=== PATIENT | male | born 1955 | race Caucasian/White ===

== ENCOUNTER 2022-05-10 14:10 | Inpatient (IN) ==
[2022-05-10 16:14] LABS: Basophils % 0.5 % (0.0-0.8); Eosinophils # 0.1 10*3/uL (0.0-0.87); Eosinophils % 0.9 % (0.00-10.9); Hematocrit 37.2 VOL% (42.0-52.0); Hemoglobin 12.5 GM/DL (14.0-18.0); Immature Granulocytes % 0.4 %; Immature Granulocytes Absolute 0.03 #; Lymphocytes % 12.4 % (21.2-54.2); Mean Corpuscular HGB Conc 33.6 GM/DL (32-36); Mean Corpuscular Volume 84.2 FL (87-102); Mean Platelet Volume 10.7 FL (9.6-12.0); Neutrophils % 72.8 % (38.7-73.9); Platelet Count 231 T/CUMM (130-400); Red Blood Count 4.42 MC/CUMM (3.8-5.5); Red Cell Distribution Width 13.2 % (9.3-17.3); White Blood Count 7.9 T/CUMM (4-12)
[2022-05-10 16:34] LABS: Albumin 3.5 G/DL (3.4-5.0); Bilirubin,Total 0.5 MG/DL (0.20-1.00); Calcium 9.8 MG/DL (8.5-10.1); Osmolality,Calculated 267.1 MOS/KG (273-304); Potassium 4.4 MMOL/L (3.5-5.1); Total Protein 7.4 G/DL (6.4-8.2)
[2022-05-10] MEDS ORDERED: SODIUM CHLORIDE 0.9% 1,000 ML IV STA (16:49)
[2022-05-10 17:15] LABS: Bilirubin,Urine Negative (Negative); Blood, Urine Small mg/dL (Negative); Glucose,Urine (UA) Negative (Negative); Ketones,Urine Negative (Negative); Nitrite,Urine Negative (Negative); Protein,Urine Negative (Negative); RBC,Urine 1 /HPF (0-4); Urine Appearance CLEAR (Clear); Urine Color Yellow (Yellow); Urine Urobilinogen < 2.0 eU/dL (<2.0)
[2022-05-10] MEDS ORDERED: LORazepam 2 MG/1 ML VIAL ONE (18:28)
[2022-05-10] MEDS ORDERED: LORazepam 2 MG/1 ML VIAL IV STA (18:29)
[2022-05-10] MEDS ORDERED: hydrALAZINE 20 MG/1 ML VIAL IV PRN (21:20)
[2022-05-10] MEDS ORDERED: ONDANSETRON 4 MG/2 ML VIAL IV PRN (21:20)
[2022-05-10] MEDS ORDERED: NICOTINE 21 MG/24 HR PATCH TRANSDERM PRN (21:20)
[2022-05-10] MEDS ORDERED: LORazepam 2 MG/1 ML VIAL IV PRN (21:47)
[2022-05-10 22:15] LABS: % Iron Saturation 10.9 % (18-50); Ferritin 203.6 ng/mL (26-388); Folate 21.09 NG/ML (5.38-24.0)
[2022-05-10 22:21] LABS: Hepatitis B Core IgM Quant 0.15 Index; Hepatitis B Surface Ag Quant < 0.10 Index; Hepatitis B Surface Ag Result Non-Reactive (NonReactive); Hepatitis C Virus Ab Quant 0.03 Index; Hepatitis C Virus Ab Result Non-Reactive (NonReactive)
[2022-05-10] MEDS: SODIUM CHLORIDE 0.9% 1,000 ML IV SCH (22:30)
[2022-05-11 03:34] LABS: Basophils % 0.5 % (0.0-0.8); Eosinophils # 0.1 10*3/uL (0.0-0.87); Hematocrit 32.9 VOL% (42.0-52.0); Hemoglobin 10.9 GM/DL (14.0-18.0); Immature Granulocytes % 0.5 %; Immature Granulocytes Absolute 0.03 #; Lymphocytes # 0.8 10*3/uL (1.4-4.0); Lymphocytes % 14.8 % (21.2-54.2); Mean Corpuscular HGB Conc 33.1 GM/DL (32-36); Mean Corpuscular Volume 85.7 FL (87-102); Mean Platelet Volume 10.9 FL (9.6-12.0); Monocytes # 0.9 10*3/uL (0.11-0.8); Monocytes % 15.7 % (1.7-12.7); Neutrophils % 66.5 % (38.7-73.9); Platelet Count 188 T/CUMM (130-400); Red Blood Count 3.84 MC/CUMM (3.8-5.5); Red Cell Distribution Width 13.3 % (9.3-17.3); White Blood Count 5.6 T/CUMM (4-12)
[2022-05-11 03:57] LABS: Lymphocytes 24 % (20-55); Platelet Estimate Adequate; Total Cells Counted 100
[2022-05-11 04:00] LABS: Bilirubin,Total 0.5 MG/DL (0.20-1.00); Calcium 9.3 MG/DL (8.5-10.1); Osmolality,Calculated 273.4 MOS/KG (273-304); Potassium 4.3 MMOL/L (3.5-5.1); Thyroid Stimulating Hormone 0.991 uIU/ml (0.358-3.74); Total Protein 6.6 G/DL (6.4-8.2)
[2022-05-11] MEDS: MULTIVITAMIN (CENTRUM) TABLET PO SCH (08:57)
[2022-05-11] MEDS: ENOXAPARIN 40 MG/0.4 ML SYRINGE SUBCUT SCH (08:57)
[2022-05-11] MEDS: FOLIC ACID 1 MG TABLET PO SCH (08:57)
[2022-05-11] MEDS: ASPIRIN EC 325 MG TABLET PO SCH (08:57)
[2022-05-11] MEDS: PANTOPRAZOLE 40 MG TABLET PO SCH (08:57)
[2022-05-11] MEDS: THIAMINE 100 MG TABLET PO SCH ×2 (08:57→21:43)
[2022-05-11] MEDS: SODIUM CHLORIDE 0.9% 1,000 ML IV SCH (14:06)
[2022-05-11] MEDS: AMOXICILLIN 875 MG TABLET PO SCH (21:43)
[2022-05-12 05:33] LABS: Basophils % 0.4 % (0.0-0.8); Eosinophils # 0.1 10*3/uL (0.0-0.87); Eosinophils % 0.9 % (0.00-10.9); Hematocrit 29.7 VOL% (42.0-52.0); Hemoglobin 9.8 GM/DL (14.0-18.0); Immature Granulocytes % 0.7 %; Immature Granulocytes Absolute 0.06 #; Lymphocytes # 0.6 10*3/uL (1.4-4.0); Lymphocytes % 7.4 % (21.2-54.2); Mean Corpuscular Volume 86.3 FL (87-102); Mean Platelet Volume 11.3 FL (9.6-12.0); Monocytes # 0.9 10*3/uL (0.11-0.8); Monocytes % 11.4 % (1.7-12.7); Neutrophils % 79.2 % (38.7-73.9); Platelet Count 182 T/CUMM (130-400); Red Blood Count 3.44 MC/CUMM (3.8-5.5); Red Cell Distribution Width 13.5 % (9.3-17.3); White Blood Count 8.2 T/CUMM (4-12)
[2022-05-12 05:49] LABS: Calcium 9.2 MG/DL (8.5-10.1); Osmolality,Calculated 268.7 MOS/KG (273-304); Potassium 3.9 MMOL/L (3.5-5.1)
[2022-05-12] MEDS: ENOXAPARIN 40 MG/0.4 ML SYRINGE SUBCUT SCH (09:33)
[2022-05-12] MEDS: FOLIC ACID 1 MG TABLET PO SCH (09:33)
[2022-05-12] MEDS: ASPIRIN EC 325 MG TABLET PO SCH (09:33)
[2022-05-12] MEDS: AMOXICILLIN 875 MG TABLET PO SCH ×2 (09:33→20:12)
[2022-05-12] MEDS: THIAMINE 100 MG TABLET PO SCH ×2 (09:33→20:12)
[2022-05-12] MEDS: PANTOPRAZOLE 40 MG TABLET PO SCH (09:33)
[2022-05-12] MEDS: MULTIVITAMIN (CENTRUM) TABLET PO SCH (09:33)
[2022-05-12] MEDS ORDERED: COLCHICINE 0.6 MG CAPSULE PO ONE ×2 (11:00→12:00)
[2022-05-12] MEDS: DICLOFENAC 1% GEL 100 GM TUBE TOP PRN ×2 (16:21→20:15)
[2022-05-12] MEDS: GABAPENTIN 100 MG CAPSULE PO SCH (20:12)
[2022-05-13] MEDS: ACETAMINOPHEN 325 MG TABLET PO PRN ×3 (00:43→21:13)
[2022-05-13 03:53] LABS: Basophils % 0.2 % (0.0-0.8); Eosinophils # 0.1 10*3/uL (0.0-0.87); Eosinophils % 0.9 % (0.00-10.9); Hematocrit 28.1 VOL% (42.0-52.0); Hemoglobin 9.3 GM/DL (14.0-18.0); Immature Granulocytes % 0.5 %; Immature Granulocytes Absolute 0.04 #; Lymphocytes # 0.9 10*3/uL (1.4-4.0); Lymphocytes % 10.7 % (21.2-54.2); Mean Corpuscular HGB Conc 33.1 GM/DL (32-36); Mean Corpuscular Volume 85.2 FL (87-102); Mean Platelet Volume 10.6 FL (9.6-12.0); Monocytes # 1.2 10*3/uL (0.11-0.8); Monocytes % 13.5 % (1.7-12.7); Neutrophils % 74.2 % (38.7-73.9); Platelet Count 149 T/CUMM (130-400); Red Cell Distribution Width 13.5 % (9.3-17.3); White Blood Count 8.8 T/CUMM (4-12)
[2022-05-13 04:16] LABS: Albumin 2.4 G/DL (3.4-5.0); Bilirubin,Total 0.7 MG/DL (0.20-1.00); Calcium 9.3 MG/DL (8.5-10.1); Osmolality,Calculated 257.4 MOS/KG (273-304); Potassium 3.7 MMOL/L (3.5-5.1); Total Protein 6.2 G/DL (6.4-8.2)
[2022-05-13] MEDS: AMOXICILLIN 875 MG TABLET PO SCH (08:57)
[2022-05-13] MEDS: MULTIVITAMIN (CENTRUM) TABLET PO SCH (08:57)
[2022-05-13] MEDS: GABAPENTIN 100 MG CAPSULE PO SCH ×3 (08:57→21:13)
[2022-05-13] MEDS: THIAMINE 100 MG TABLET PO SCH ×2 (08:57→21:13)
[2022-05-13] MEDS: COLCHICINE 0.6 MG CAPSULE PO SCH (08:57)
[2022-05-13] MEDS: ENOXAPARIN 40 MG/0.4 ML SYRINGE SUBCUT SCH (08:57)
[2022-05-13] MEDS: PANTOPRAZOLE 40 MG TABLET PO SCH (08:57)
[2022-05-13] MEDS: FOLIC ACID 1 MG TABLET PO SCH (08:57)
[2022-05-13] MEDS: ASPIRIN EC 325 MG TABLET PO SCH (08:57)
[2022-05-13 11:38] LABS: Bacteria,Urine Occasional /HPF (Few); Mucus,Urine Occasional /LPF (Occasional); RBC,Urine 5 /HPF (0-4)
[2022-05-13 11:39] LABS: Bilirubin,Urine Negative (Negative); Glucose,Urine (UA) Negative (Negative); Ketones,Urine Negative (Negative); Nitrite,Urine Negative (Negative); Protein,Urine 30 mg/dL (Negative); Urine Appearance Clear (Clear); Urine Color Yellow (Yellow); Urine pH 5.5 (4.5-8.0)
[2022-05-13 11:40] LABS: Blood, Urine Moderate mg/dL (Negative); Urine Urobilinogen 0.2 eU/dL (<2.0)
[2022-05-13] MEDS: MORPHINE 2 MG/1 ML SYRINGE IV PRN ×2 (13:20→18:38)
[2022-05-13] MEDS: DICLOFENAC 1% GEL 100 GM TUBE TOP PRN ×2 (13:23→21:18)
[2022-05-13] MEDS ORDERED: SODIUM CHLORIDE 0.9% 500 ML IV ONE (14:30)
[2022-05-13 16:06] LABS: HIV Antigen/Antibody Result Nonreactive (Nonreactive)
[2022-05-13] MEDS: cefTRIAXone 2,000 MG in SODIUM CHLORIDE 0.9% 100 ML IV SCH (16:20)
[2022-05-14 05:20] LABS: Basophils % 0.3 % (0.0-0.8); Eosinophils # 0.2 10*3/uL (0.0-0.87); Eosinophils % 2.6 % (0.00-10.9); Hematocrit 27.8 VOL% (42.0-52.0); Hemoglobin 9.1 GM/DL (14.0-18.0); Immature Granulocytes % 0.4 %; Immature Granulocytes Absolute 0.03 #; Lymphocytes # 0.7 10*3/uL (1.4-4.0); Lymphocytes % 9.1 % (21.2-54.2); Mean Corpuscular HGB Conc 32.7 GM/DL (32-36); Mean Corpuscular Volume 86.1 FL (87-102); Mean Platelet Volume 11.4 FL (9.6-12.0); Monocytes # 1.1 10*3/uL (0.11-0.8); Monocytes % 14.6 % (1.7-12.7); Platelet Count 144 T/CUMM (130-400); Red Blood Count 3.23 MC/CUMM (3.8-5.5); Red Cell Distribution Width 13.5 % (9.3-17.3); White Blood Count 7.8 T/CUMM (4-12)
[2022-05-14 05:44] LABS: Calcium 9.3 MG/DL (8.5-10.1); Osmolality,Calculated 267.7 MOS/KG (273-304); Potassium 3.9 MMOL/L (3.5-5.1)
[2022-05-14] MEDS: COLCHICINE 0.6 MG CAPSULE PO SCH (09:26)
[2022-05-14] MEDS: MULTIVITAMIN (CENTRUM) TABLET PO SCH (09:26)
[2022-05-14] MEDS: GABAPENTIN 100 MG CAPSULE PO SCH ×3 (09:26→20:10)
[2022-05-14] MEDS: SERTRALINE 25 MG TABLET PO SCH (09:27)
[2022-05-14] MEDS: ENOXAPARIN 40 MG/0.4 ML SYRINGE SUBCUT SCH (09:27)
[2022-05-14] MEDS: THIAMINE 100 MG TABLET PO SCH ×2 (09:27→20:10)
[2022-05-14] MEDS: PANTOPRAZOLE 40 MG TABLET PO SCH (09:27)
[2022-05-14] MEDS: FOLIC ACID 1 MG TABLET PO SCH (09:27)
[2022-05-14] MEDS: predniSONE 20 MG TABLET PO SCH (09:27)
[2022-05-14] MEDS: FERRIC GLUCONATE COMPLEX 125 MG in SODIUM CHLORIDE 0.9% 100 ML IV SCH (11:40)
[2022-05-14] MEDS ORDERED: ACETAMINOPHEN 325 MG TABLET PO ONE (13:43)
[2022-05-14] MEDS ORDERED: diphenhydrAMINE 50 MG/1 ML VIAL IV ONE (13:46)
[2022-05-14] MEDS: cefTRIAXone 2,000 MG in SODIUM CHLORIDE 0.9% 100 ML IV SCH (15:23)
[2022-05-14] MEDS: IMMUNE GLOBULIN 10% 20 GM, IMMUNE GLOBULIN 10% 10 GM in PREMIX 1 EACH IV SCH (16:48)
[2022-05-14] MEDS: MORPHINE 2 MG/1 ML SYRINGE IV PRN (20:13)
[2022-05-15] MEDS: MORPHINE 2 MG/1 ML SYRINGE IV PRN ×2 (03:09→21:31)
[2022-05-15 05:43] LABS: Basophils % 0.2 % (0.0-0.8); Eosinophils # 0.1 10*3/uL (0.0-0.87); Hematocrit 25.9 VOL% (42.0-52.0); Hemoglobin 8.7 GM/DL (14.0-18.0); Immature Granulocytes % 0.4 %; Immature Granulocytes Absolute 0.02 #; Lymphocytes # 0.7 10*3/uL (1.4-4.0); Lymphocytes % 11.8 % (21.2-54.2); Mean Corpuscular HGB Conc 33.6 GM/DL (32-36); Mean Platelet Volume 11.5 FL (9.6-12.0); Monocytes # 0.9 10*3/uL (0.11-0.8); Monocytes % 15.6 % (1.7-12.7); Platelet Count 177 T/CUMM (130-400); Red Blood Count 3.01 MC/CUMM (3.8-5.5); Red Cell Distribution Width 13.3 % (9.3-17.3); White Blood Count 5.5 T/CUMM (4-12)
[2022-05-15 06:10] LABS: Calcium 9.1 MG/DL (8.5-10.1); Osmolality,Calculated 268.7 MOS/KG (273-304); Potassium 3.7 MMOL/L (3.5-5.1)
[2022-05-15 06:50] LABS: Eosinophils 2 % (0-10); Hypochromia Slight; Lymphocytes 9 % (20-55); Microcytosis Slight; Platelet Estimate Adequate; Total Cells Counted 100
[2022-05-15] MEDS: IMMUNE GLOBULIN 10% 20 GM, IMMUNE GLOBULIN 10% 10 GM in PREMIX 1 EACH IV SCH (08:33)
[2022-05-15] MEDS: GABAPENTIN 100 MG CAPSULE PO SCH (08:33)
[2022-05-15] MEDS: predniSONE 20 MG TABLET PO SCH (08:33)
[2022-05-15] MEDS: SERTRALINE 25 MG TABLET PO SCH (08:33)
[2022-05-15] MEDS: FOLIC ACID 1 MG TABLET PO SCH (08:33)
[2022-05-15] MEDS: PANTOPRAZOLE 40 MG TABLET PO SCH (08:33)
[2022-05-15] MEDS: MULTIVITAMIN (CENTRUM) TABLET PO SCH (08:33)
[2022-05-15] MEDS: COLCHICINE 0.6 MG CAPSULE PO SCH (08:33)
[2022-05-15] MEDS: THIAMINE 100 MG TABLET PO SCH ×2 (08:33→21:24)
[2022-05-15] MEDS: ENOXAPARIN 40 MG/0.4 ML SYRINGE SUBCUT SCH (08:34)
[2022-05-15] MEDS: FERRIC GLUCONATE COMPLEX 125 MG in SODIUM CHLORIDE 0.9% 100 ML IV SCH (13:17)
[2022-05-15] MEDS: GABAPENTIN 300 MG CAPSULE PO SCH ×2 (16:02→21:24)
[2022-05-15] MEDS: cefTRIAXone 2,000 MG in SODIUM CHLORIDE 0.9% 100 ML IV SCH (16:02)
[2022-05-15] MEDS: TAMSULOSIN 0.4 MG CAPSULE PO SCH (21:24)
[2022-05-16 05:26] LABS: Basophils % 0.2 % (0.0-0.8); Eosinophils # 0.2 10*3/uL (0.0-0.87); Eosinophils % 4.3 % (0.00-10.9); Hemoglobin 8.8 GM/DL (14.0-18.0); Immature Granulocytes % 0.7 %; Immature Granulocytes Absolute 0.03 #; Lymphocytes # 0.8 10*3/uL (1.4-4.0); Lymphocytes % 17.4 % (21.2-54.2); Mean Corpuscular HGB Conc 32.6 GM/DL (32-36); Mean Corpuscular Volume 85.7 FL (87-102); Mean Platelet Volume 11.1 FL (9.6-12.0); Monocytes # 0.8 10*3/uL (0.11-0.8); Monocytes % 16.9 % (1.7-12.7); Neutrophils % 60.5 % (38.7-73.9); Platelet Count 212 T/CUMM (130-400); Red Blood Count 3.15 MC/CUMM (3.8-5.5); Red Cell Distribution Width 13.5 % (9.3-17.3); White Blood Count 4.4 T/CUMM (4-12)
[2022-05-16 05:52] LABS: Eosinophils 6 % (0-10); Hypochromia Slight; Lymphocytes 14 % (20-55); Microcytosis Slight; Ovalocytes Slight; Total Cells Counted 100
[2022-05-16 05:53] LABS: Platelet Estimate Normal
[2022-05-16 06:07] LABS: Calcium 9.3 MG/DL (8.5-10.1); Osmolality,Calculated 265.8 MOS/KG (273-304); Potassium 3.7 MMOL/L (3.5-5.1)
[2022-05-16 06:59] LABS: Random Urine Protein (Bench) 60 MG/DL (<11.9); Total Protein (Chem) 6.4 G/DL (6.4-8.3)
[2022-05-16 08:27] LABS: Albumin (SPE) 3.6 G/DL (3.2-5.3); Albumin (SPE) Rel % 56.5 %; Alpha 1 (SPE) 0.5 G/DL (0.1-0.4); Alpha 1 (SPE) Rel % 7.1 %; Alpha 2 (SPE) 0.9 G/DL (0.4-1.0); Alpha 2 (SPE) Rel % 14.3 %; Beta (SPE) 0.9 G/DL (0.5-1.1); Beta (SPE) Rel % 14.4 %; Gamma (SPE) 0.5 G/DL (0.7-1.7); Gamma (SPE) Rel % 7.7 %
[2022-05-16] MEDS: FERRIC GLUCONATE COMPLEX 125 MG in SODIUM CHLORIDE 0.9% 100 ML IV SCH (09:37)
[2022-05-16] MEDS: ENOXAPARIN 40 MG/0.4 ML SYRINGE SUBCUT SCH (09:39)
[2022-05-16] MEDS: FOLIC ACID 1 MG TABLET PO SCH (09:40)
[2022-05-16] MEDS: PANTOPRAZOLE 40 MG TABLET PO SCH (09:40)
[2022-05-16] MEDS: THIAMINE 100 MG TABLET PO SCH ×2 (09:40→21:39)
[2022-05-16] MEDS: COLCHICINE 0.6 MG CAPSULE PO SCH (09:40)
[2022-05-16] MEDS: MULTIVITAMIN (CENTRUM) TABLET PO SCH (09:40)
[2022-05-16] MEDS: SERTRALINE 25 MG TABLET PO SCH (09:40)
[2022-05-16] MEDS: predniSONE 20 MG TABLET PO SCH (09:40)
[2022-05-16] MEDS: GABAPENTIN 300 MG CAPSULE PO SCH ×3 (09:41→21:39)
[2022-05-16] MEDS: IMMUNE GLOBULIN 10% 20 GM, IMMUNE GLOBULIN 10% 10 GM in PREMIX 1 EACH IV SCH (11:19)
[2022-05-16] MEDS: cefTRIAXone 2,000 MG in SODIUM CHLORIDE 0.9% 100 ML IV SCH (15:50)
[2022-05-16] MEDS: TAMSULOSIN 0.4 MG CAPSULE PO SCH (21:39)
[2022-05-16] MEDS: MORPHINE 2 MG/1 ML SYRINGE IV PRN (22:03)
[2022-05-17 05:05] LABS: Basophils % 0.2 % (0.0-0.8); Eosinophils # 0.3 10*3/uL (0.0-0.87); Hematocrit 27.1 VOL% (42.0-52.0); Hemoglobin 8.8 GM/DL (14.0-18.0); Immature Granulocytes % 0.4 %; Immature Granulocytes Absolute 0.02 #; Lymphocytes % 21.9 % (21.2-54.2); Mean Corpuscular HGB Conc 32.5 GM/DL (32-36); Mean Corpuscular Volume 86.6 FL (87-102); Mean Platelet Volume 10.6 FL (9.6-12.0); Monocytes # 0.8 10*3/uL (0.11-0.8); Monocytes % 16.7 % (1.7-12.7); Neutrophils % 54.8 % (38.7-73.9); Platelet Count 245 T/CUMM (130-400); Red Blood Count 3.13 MC/CUMM (3.8-5.5); Red Cell Distribution Width 13.6 % (9.3-17.3); White Blood Count 4.7 T/CUMM (4-12)
[2022-05-17 05:29] LABS: Eosinophils 5 % (0-10); Hypochromia Slight; Lymphocytes 16 % (20-55); Microcytosis Slight; Nucleated Red Blood Cells 1 /100 WBC (0-5); Platelet Estimate Adequate; Total Cells Counted 100
[2022-05-17 05:35] LABS: Alanine Aminotransferase 205 U/L (16-61); Albumin 1.9 G/DL (3.4-5.0); Alkaline Phosphatase 136 U/L (45-117); Aspartate Amino Transferase 98 U/L (0-37); Bilirubin,Total < 0.39 MG/DL (0.20-1.00); Blood Urea Nitrogen 22 MG/DL (7-18); Calcium 9.3 MG/DL (8.5-10.1); Carbon Dioxide 28 MMOL/L (21-32); Chloride 100 MMOL/L (98-107); Glucose 96 MG/DL (74-106); Osmolality,Calculated 272.1 MOS/KG (273-304); Potassium 3.7 MMOL/L (3.5-5.1); Sodium 135 MMOL/L (136-145); Total Protein 7.3 G/DL (6.4-8.2)
[2022-05-17 08:03] LABS: PT Patient Result 10.9 SECS (10.1-12.1)
[2022-05-17] MEDS: predniSONE 20 MG TABLET PO SCH (08:35)
[2022-05-17] MEDS: COLCHICINE 0.6 MG CAPSULE PO SCH (08:35)
[2022-05-17] MEDS: GABAPENTIN 300 MG CAPSULE PO SCH ×3 (08:35→21:17)
[2022-05-17] MEDS: SERTRALINE 25 MG TABLET PO SCH (08:36)
[2022-05-17] MEDS: THIAMINE 100 MG TABLET PO SCH ×2 (08:36→21:17)
[2022-05-17] MEDS: FOLIC ACID 1 MG TABLET PO SCH (08:36)
[2022-05-17] MEDS: PANTOPRAZOLE 40 MG TABLET PO SCH (08:36)
[2022-05-17] MEDS: FERRIC GLUCONATE COMPLEX 125 MG in SODIUM CHLORIDE 0.9% 100 ML IV SCH (08:37)
[2022-05-17] MEDS: ATORVASTATIN 20 MG TABLET PO SCH (08:37)
[2022-05-17] MEDS: MULTIVITAMIN (CENTRUM) TABLET PO SCH (08:37)
[2022-05-17] MEDS ORDERED: DIAZEPAM 5 MG TABLET PO ONE (10:07)
[2022-05-17] MEDS: SODIUM CHLORIDE 0.45% 1,000 ML IV SCH (10:40)
[2022-05-17 12:51] LABS: Lymphocytes,CSF 33 %; Monocytes,CSF 33 %; Red Blood Cell,CSF 12 C/CUMM; White Blood Cell,CSF 1 C/CUMM
[2022-05-17 12:52] LABS: Appearance,CSF Clear
[2022-05-17 13:30] LABS: Glucose,CSF 53 MG/DL (40-70)
[2022-05-17] MEDS: IMMUNE GLOBULIN 10% 20 GM, IMMUNE GLOBULIN 10% 10 GM in PREMIX 1 EACH IV SCH (13:33)
[2022-05-17] MEDS: DICLOFENAC 1% GEL 100 GM TUBE TOP PRN (15:11)
[2022-05-17] MEDS ORDERED: traZODone 50 MG TABLET PO PRN (16:08)
[2022-05-17 19:11] LABS: Antinuclear Ab, S 0.1 U
[2022-05-17] MEDS: TAMSULOSIN 0.4 MG CAPSULE PO SCH (21:17)
[2022-05-18] MEDS: cefTRIAXone 2,000 MG in SODIUM CHLORIDE 0.9% 100 ML IV SCH (04:10)
[2022-05-18 04:54] LABS: Basophils % 0.3 % (0.0-0.8); Eosinophils # 0.4 10*3/uL (0.0-0.87); Eosinophils % 6.9 % (0.00-10.9); Hematocrit 27.6 VOL% (42.0-52.0); Hemoglobin 8.8 GM/DL (14.0-18.0); Immature Granulocytes Absolute 0.06 #; Lymphocytes # 1.4 10*3/uL (1.4-4.0); Lymphocytes % 24.2 % (21.2-54.2); Mean Corpuscular HGB Conc 31.9 GM/DL (32-36); Mean Corpuscular Volume 87.3 FL (87-102); Monocytes % 16.3 % (1.7-12.7); Neutrophils % 51.3 % (38.7-73.9); Platelet Count 280 T/CUMM (130-400); Red Blood Count 3.16 MC/CUMM (3.8-5.5); Red Cell Distribution Width 13.9 % (9.3-17.3); White Blood Count 5.9 T/CUMM (4-12)
[2022-05-18 05:19] LABS: Alanine Aminotransferase 171 U/L (16-61); Albumin 1.9 G/DL (3.4-5.0); Alkaline Phosphatase 131 U/L (45-117); Aspartate Amino Transferase 68 U/L (0-37); Bilirubin,Total < 0.39 MG/DL (0.20-1.00); Blood Urea Nitrogen 24 MG/DL (7-18); Calcium 8.9 MG/DL (8.5-10.1); Carbon Dioxide 29 MMOL/L (21-32); Chloride 102 MMOL/L (98-107); Glucose 89 MG/DL (74-106); Potassium 3.9 MMOL/L (3.5-5.1); Sodium 136 MMOL/L (136-145); Total Protein 7.5 G/DL (6.4-8.2)
[2022-05-18 05:23] LABS: Band Neutrophils 1 % (0-10); Eosinophils 9 % (0-10); Hypochromia Slight; Lymphocytes 17 % (20-55); Microcytosis Slight; Platelet Estimate Adequate; Total Cells Counted 100
[2022-05-18] MEDS: FERRIC GLUCONATE COMPLEX 125 MG in SODIUM CHLORIDE 0.9% 100 ML IV SCH (10:09)
[2022-05-18] MEDS: PANTOPRAZOLE 40 MG TABLET PO SCH (10:12)
[2022-05-18] MEDS: THIAMINE 100 MG TABLET PO SCH ×2 (10:12→20:39)
[2022-05-18] MEDS: SERTRALINE 25 MG TABLET PO SCH (10:12)
[2022-05-18] MEDS: MULTIVITAMIN (CENTRUM) TABLET PO SCH (10:12)
[2022-05-18] MEDS: ASPIRIN EC 325 MG TABLET PO SCH (10:12)
[2022-05-18] MEDS: ATORVASTATIN 20 MG TABLET PO SCH (10:12)
[2022-05-18] MEDS: predniSONE 20 MG TABLET PO SCH (10:12)
[2022-05-18] MEDS: COLCHICINE 0.6 MG CAPSULE PO SCH (10:13)
[2022-05-18] MEDS: GABAPENTIN 300 MG CAPSULE PO SCH ×3 (10:13→20:39)
[2022-05-18] MEDS: DICLOFENAC 1% GEL 100 GM TUBE TOP PRN ×2 (10:13→20:39)
[2022-05-18] MEDS: FOLIC ACID 1 MG TABLET PO SCH (10:13)
[2022-05-18] MEDS: IMMUNE GLOBULIN 10% 20 GM, IMMUNE GLOBULIN 10% 10 GM in PREMIX 1 EACH IV SCH (11:30)
[2022-05-18] MEDS: SODIUM CHLORIDE 0.45% 1,000 ML IV SCH (11:35)
[2022-05-18] MEDS ORDERED: amLODIPine 10 MG TABLET PO SCH (12:30)
[2022-05-18] MEDS: amLODIPine 10 MG TABLET PO SCH (13:50)
[2022-05-18] MEDS: POLYETHYLENE GLYCOL POWDER 17 GM PACK PO SCH ×2 (15:06→20:38)
[2022-05-18 17:55] LABS: IgG, CSF > 1000.0 mg/dL (<=8.1)
[2022-05-18] MEDS: TAMSULOSIN 0.4 MG CAPSULE PO SCH (20:39)
[2022-05-19 04:59] LABS: Basophils % 0.3 % (0.0-0.8); Eosinophils # 0.4 10*3/uL (0.0-0.87); Eosinophils % 4.8 % (0.00-10.9); Hemoglobin 9.5 GM/DL (14.0-18.0); Immature Granulocytes % 1.4 %; Lymphocytes # 1.5 10*3/uL (1.4-4.0); Lymphocytes % 20.1 % (21.2-54.2); Mean Corpuscular HGB Conc 31.7 GM/DL (32-36); Mean Corpuscular Volume 88.5 FL (87-102); Mean Platelet Volume 9.8 FL (9.6-12.0); Monocytes # 0.9 10*3/uL (0.11-0.8); Monocytes % 12.7 % (1.7-12.7); Neutrophils % 60.7 % (38.7-73.9); Platelet Count 308 T/CUMM (130-400); Red Blood Count 3.39 MC/CUMM (3.8-5.5); Red Cell Distribution Width 14.2 % (9.3-17.3); White Blood Count 7.3 T/CUMM (4-12)
[2022-05-19 05:34] LABS: Alanine Aminotransferase 165 U/L (16-61); Alkaline Phosphatase 126 U/L (45-117); Aspartate Amino Transferase 60 U/L (0-37); Bilirubin,Total < 0.39 MG/DL (0.20-1.00); Blood Urea Nitrogen 21 MG/DL (7-18); Calcium 9.1 MG/DL (8.5-10.1); Carbon Dioxide 29 MMOL/L (21-32); Chloride 103 MMOL/L (98-107); Glucose 90 MG/DL (74-106); Potassium 4.2 MMOL/L (3.5-5.1); Sodium 136 MMOL/L (136-145); Total Protein 7.8 G/DL (6.4-8.2)
[2022-05-19] MEDS: amLODIPine 10 MG TABLET PO SCH (08:53)
[2022-05-19] MEDS: predniSONE 20 MG TABLET PO SCH (08:53)
[2022-05-19] MEDS: SERTRALINE 25 MG TABLET PO SCH (08:53)
[2022-05-19] MEDS: ATORVASTATIN 20 MG TABLET PO SCH (08:53)
[2022-05-19] MEDS: FOLIC ACID 1 MG TABLET PO SCH (08:54)
[2022-05-19] MEDS: GABAPENTIN 300 MG CAPSULE PO SCH ×2 (08:54→14:40)
[2022-05-19] MEDS: ENOXAPARIN 40 MG/0.4 ML SYRINGE SUBCUT SCH (08:54)
[2022-05-19] MEDS: COLCHICINE 0.6 MG CAPSULE PO SCH (08:54)
[2022-05-19] MEDS: PANTOPRAZOLE 40 MG TABLET PO SCH (08:54)
[2022-05-19] MEDS: THIAMINE 100 MG TABLET PO SCH (08:54)
[2022-05-19] MEDS: MULTIVITAMIN (CENTRUM) TABLET PO SCH (08:54)
[2022-05-19] MEDS: POLYETHYLENE GLYCOL POWDER 17 GM PACK PO SCH (08:55)
[2022-05-19] MEDS: FERRIC GLUCONATE COMPLEX 125 MG in SODIUM CHLORIDE 0.9% 100 ML IV SCH (08:55)
[2022-05-19] MEDS ORDERED: ASPIRIN EC 81 MG TABLET PO SCH (09:00)
[2022-05-19] MEDS ORDERED: lisinopriL 10 MG TABLET PO SCH (11:00)
[2022-05-19] MEDS ORDERED: FUROSEMIDE 40 MG TABLET PO SCH (11:00)
[2022-05-19 16:38] VITALS: BP 143/74
[2022-05-20] MEDS ORDERED: METOPROLOL SUCCINATE XL 25 MG TABLET PO SCH (09:00)
== END 2022-05-19 16:22 | disposition swing bed (61) | DRG 95 ==
LOC: N.ED 14:10 → N.EDINP 21:20 → N.3E 05-11 01:32
PROVIDERS: ADMIT Internal Medicine; ATTEND Internal Medicine